=== PATIENT | male | born 1985 | race Caucasian/White ===

== ENCOUNTER 2018-08-25 05:22 | Emergency (ER) | payer BC, OTHER ==
[~2018-08-25] VITALS: Ht 182.9 cm; Wt 90.7 kg
[2018-08-25] MEDS ORDERED: LIDOCAINE 2% VISCOUS 15 ML UDC ONE (05:27)
[2018-08-25] MEDS ORDERED: ANTACID SUSP 30 ML UDC (MYLANTA) ONE (05:27)
[2018-08-25] MEDS ORDERED: LIDOCAINE 2% VISCOUS 15 ML UDC PO ONE (05:30)
[2018-08-25] MEDS ORDERED: ONDANSETRON 4 MG/2 ML (SDV) Z0FRAN IVP ONE (05:30)
[2018-08-25] MEDS ORDERED: ANTACID SUSP 30 ML UDC (MYLANTA) PO ONE (05:30)
[2018-08-25] MEDS ORDERED: FAMOTIDINE 20MG/2ML IV (PEPCID) IVP ONE (05:30)
[2018-08-25] MEDS ORDERED: morphine INJ 10 MG/ML 1ML (SYR OR VIAL) IVP STA (05:55)
[2018-08-25 06:16] LABS: HEMOGLOBIN 14.8 G/DL (13.3-17.7); RED CELL DISTRIBUTION WIDTH 12.7 % (10.0-14.5); WHITE BLOOD COUNT 10.4 10^3/uL (4.3-11.0)
[2018-08-25 06:17] LABS: MEAN PLATELET VOLUME 8.3 FL (7.4-10.4)
[2018-08-25 06:33] LABS: ALANINE AMINOTRANSFERASE 46 U/L (0-55); ALKALINE PHOSPHATASE 58 U/L (40-136); BILIRUBIN,TOTAL 0.4 MG/DL (0.1-1.0); BUN/CREATININE RATIO 8; CALCIUM 8.8 MG/DL (8.5-10.1); CARBON DIOXIDE 25 MMOL/L (21-32); CHLORIDE 101 MMOL/L (98-107); CREATININE SERUM 1.04 MG/DL (0.60-1.30); GFR ESTIMATED > 60; GLUCOSE 99 MG/DL (70-105); POTASSIUM 3.6 MMOL/L (3.6-5.0); SODIUM 143 MMOL/L (135-145)
[2018-08-25 06:34] LABS: ALBUMIN 4.8 GM/DL (3.2-4.5); LIPASE 29 U/L (8-78); TOTAL PROTEIN 7.7 GM/DL (6.4-8.2)
--- NOTE | 2018-08-25 06:54 | Diagnostic Imaging Report ---
INDICATION: Chest pain COMPARISON: None. FINDINGS: Single view chest demonstrates clear lungs bilaterally. The heart is normal. There is no pneumothorax. The osseous structures normal. IMPRESSION: Negative chest. Dictated by: Dictated on workstation # [id number]
--- NOTE | 2018-08-25 07:05 | NUR ---
Report from Joselin CAMILO. Pt pending results of tests and being notified of tests resulted to review.
[2018-08-25] MEDS ORDERED: NS IV 1000 ML 1,000 ML IV SCH (07:15)
--- NOTE | 2018-08-25 07:49 | ED Chest Pain ---
General Chief Complaint: Cardiac/General Problems Stated Complaint: CHEST PAIN Nursing Triage Note: complaint of tightness, sharp chest pain woke pt from sleep. states had greasy food and ETOH last night. Nursing Sepsis Screen: No Definite Risk Source: patient Exam Limitations: no limitations History of Present Illness Date Seen by Provider: Aug 25, 2018 Time Seen by Provider: 05:30 Initial Comments 33-year-old male who woke with severe crushing substernal chest pain described as squeezing, rated 10 out of 10 this morning. Patient has history of reflux disease is noncompliant with medication. States he ate spicy food and drink alcohol last night prior to bed. No shortness of breath fever chills nausea vomiting sweats. No hematemesis coffee-ground emesis, melena. No flank back, shoulder pain, neck pain. No history of coronary disease. No history of pancreatitis, biliary disease, DVT or PE. No other acute symptoms or complaints. Patient does report heavy alcohol consumption past 2 days. Timing/Duration: 1-3 hours Severity/Quality: severe Location: substernal, epigastric Radiation: no radiation Activities at Onset: sleep Prior CP/Workup: no prior chest pain ASA po CARTON FOLDER: No NTG SL CARTON FOLDER: No Associated Symptoms: abdominal pain, heartburn Allergies and Home Medications Allergies Coded Allergies: No Known Drug Allergies (Unverified , 08/25/18) Patient Home Medication List Home Medication List Reviewed: Yes Review of Systems Review of Systems Constitutional: no symptoms reported EENTM: No Symptoms Reported Respiratory: No Symptoms Reported Cardiovascular: See HPI, Chest Pain, Lightheadedness Gastrointestinal: No Symptoms Reported, Abdominal Pain Genitourinary: No Symptoms Reported Musculoskeletal: no symptoms reported Skin: no symptoms reported Psychiatric/Neurological: No Symptoms Reported Endocrine: No Symptoms Reported Hematologic/Lymphatic: No Symptoms Reported All Other Systems Reviewed Negative Unless Noted: Yes Past Epnaerr-Eyosmz-Unjycf Hx Patient Social History Alcohol Use: Occasionally Uses Smoking Status: Never a Smoker Recent Foreign Travel: No Contact w/Someone Who Travel: No Recent Infectious Disease Expo: No Physical Abuse: No Sexual Abuse: No Mistreated: No Seasonal Allergies Seasonal Allergies: Yes Physical Exam Vital Signs Vital Signs - First Documented 08/25/18 05:45 Temp 98.9 Pulse 94 Resp 18 B/P (MAP) 136/83 (100) Pulse Ox 100 O2 Delivery Room Air Capillary Refill : Less Than 3 Seconds Height, Weight, BMI Height: 6'" Weight: 200lbs. oz. [id number]; BMI Method:Estimated General Appearance: WD/WN, Anxious, Moderate Distress HEENT: PERRL/EOMI, Normal ENT Inspection, Pharynx Normal, Moist Mucous Membranes; No Pale Conjunctivae (L), No Pale Conjunctivae (R) Neck: Full Range of Motion, Normal Inspection, Non Tender Respiratory: Chest Non Tender, Lungs Clear, Normal Breath Sounds, No Accessory Muscle Use, No Respiratory Distress Cardiovascular: Regular Rate, Rhythm, No Edema, Normal Peripheral Pulses Gastrointestinal: Normal Bowel Sounds; No Abnormal Bowel Sounds, No Distended, No Hepatomegaly Neurologic/Psychiatric: Alert, Oriented x3 Skin: Normal Color, Warm/Dry Focused Exam Sepsis Stage: Ruled Out Progress/Results/Core Measures Results/Orders Lab Results Laboratory Tests Test 08/25/18 05:45 Range/Units White Blood Count 10.4 4.3-11.0 10^3/uL Red Blood Count 4.40 4.35-5.85 10^6/uL Hemoglobin 14.8 13.3-17.7 G/DL Hematocrit 42 40-54 % Mean Corpuscular Volume 95 80-99 FL Mean Corpuscular Hemoglobin 34 25-34 PG Mean Corpuscular Hemoglobin Concent 36 32-36 G/DL Red Cell Distribution Width 12.7 10.0-14.5 % Platelet Count 274 130-400 10^3/uL Mean Platelet Volume 8.3 7.4-10.4 FL Sodium Level 143 135-145 MMOL/L Potassium Level 3.6 3.6-5.0 MMOL/L Chloride Level 101 98-107 MMOL/L Carbon Dioxide Level 25 21-32 MMOL/L Anion Gap 17 H 5-14 MMOL/L Blood Urea Nitrogen 8 7-18 MG/DL Creatinine 1.04 0.60-1.30 MG/DL Estimat Glomerular Filtration Rate > 60 BUN/Creatinine Ratio 8 Glucose Level 99 70-105 MG/DL Calcium Level 8.8 8.5-10.1 MG/DL Corrected Calcium 8.5-10.1 MG/DL Total Bilirubin 0.4 0.1-1.0 MG/DL Aspartate Amino Transf (AST/SGOT) 63 H 5-34 U/L Alanine Aminotransferase (ALT/SGPT) 46 0-55 U/L Alkaline Phosphatase 58 40-136 U/L Troponin T 6 <=15 NG/L Total Protein 7.7 6.4-8.2 GM/DL Albumin 4.8 H 3.2-4.5 GM/DL Lipase 29 8-78 U/L My Orders Orders - WHIT HANSON DO Antacid Suspension (Mylanta Suspension (08/25/18 05:30) Lidocaine 2% Viscous 15 Ml (Xylocaine Vi (08/25/18 05:30) Famotidine Injection (Pepcid Injection) (08/25/18 05:30) Ondansetron Injection (Zofran Injectio (08/25/18 05:30) Lidocaine 2% Viscous 15 Ml (Xylocaine Vi (08/25/18 05:27) Antacid Suspension (Mylanta Suspension (08/25/18 05:27) Cbc No Diff (08/25/18 05:33) Comprehensive Metabolic Panel (08/25/18 05:33) Lipase (08/25/18 05:33) Chest 1 View Ap/Pa Only (08/25/18 05:33) Morphine Injection (Morphine Injection (08/25/18 05:55) Ns Iv 1000 Ml (Sodium Chloride 0.9%) (08/25/18 07:15) Ct Abdomen/Pelvis W (08/25/18 07:14) Iopamidol 61% Injection (Isovue 300 61% (08/25/18 08:30) Sodium Chloride Flush (Catheter Flush Sy (08/25/18 08:30) Ns (Ivpb) (Sodium Chloride 0.9% Ivpb Bag (08/25/18 08:30) Medications Given in ED Current Medications Medications Dose Ordered Sig/Pelon Route Start Time Stop Time Status Last Admin Dose Admin Al Hydrox/Mg Hydrox/Simethicone 30 ml STK-MED ONCE .ROUTE 08/25/18 05:27 08/25/18 05:33 DC 08/25/18 05:36 30 ML Famotidine 20 mg ONCE ONCE IVP 08/25/18 05:30 08/25/18 05:34 DC 08/25/18 06:08 20 MG Iopamidol 100 ml ONCE ONCE IV 08/25/18 08:30 08/25/18 08:35 DC 08/25/18 08:51 100 ML Lidocaine HCl 15 ml STK-MED ONCE .ROUTE 08/25/18 05:27 08/25/18 05:33 DC 08/25/18 05:37 15 ML Ondansetron HCl 4 mg ONCE ONCE IVP 08/25/18 05:30 08/25/18 05:34 DC 08/25/18 06:08 4 MG Sodium Chloride 10 ml NEEDED PRN IV 08/25/18 08:30 08/25/18 08:46 10 ML Sodium Chloride 50 ml ONCE ONCE IV 08/25/18 08:30 08/25/18 08:35 DC 08/25/18 08:46 50 ML Vital Signs/I&O 08/25/18 08/25/18 05:45 05:45 Temp 98.9 Pulse 94 Resp 18 B/P (MAP) 136/83 (100) Pulse Ox 100 O2 Delivery Room Air Room Air Blood Pressure Mean: 100 Progress Progress Note : Time: 07:50 Progress Note Patient given GI cocktail, Zofran and Pepcid with partially for symptoms. Significantly for poorly with morphine. Lab work nondiagnostic. CT abdomen and pelvis will be ordered and reviewed. If normal, anticipate discharge home with dietary restrictions and supportive care with PCP follow-up. Initial ECG Impression Date: Aug 25, 2018 Initial ECG Impression Time: 05:21 Initial ECG Rhythm: Normal Sinus Initial ECG Impression: Normal Comment Incomplete right bundle Branch block Diagnostic Imaging Diagonstic Imaging: Xray Reviewed: Reviewed [place] Study Departure Impression Primary Impression: Chest pain Additional Impression: Gastritis Disposition: 01 HOME, SELF-CARE Condition: Improved Departure-Patient Inst. Decision time for Depature: 09:39 Referrals: NO,LOCAL PHYSICIAN (PCP) Primary Care Physician Patient Instructions: Acid Reflux (Gastroesophageal Reflux Disease), Adult (DC) , Chest Pain (DC) Add. Discharge Instructions: Please drink clear liquids only for the next 6-12 hours then gradually increase to soft bland diet as tolerated. Do not drink alcohol, chest caffeine, take NSAIDs and avoid spicy foods until symptoms have fully resolved. Take newly prescribed medication as directed and follow up with your PCP in one week for reevaluation. In the meantime if you develop new or worsening symptoms, return to the ED. All discharge instructions reviewed with patient and/or family. Voiced understanding. Scripts Sucralfate (Carafate) 1 Gm/10 Ml Oral.susp 1 GM PO QID for 30 Days, ML Prov: WHIT HANSON DO 08/25/18 Famotidine (Pepcid) 20 Mg Tablet 20 MG PO BID, #60 TAB Prov: WHIT HANSON DO 08/25/18 Omeprazole (Omeprazole) 40 Mg Capsule.dr 40 MG PO DAILY, #30 CAP Prov: WHIT HANSON DO 08/25/18 WHIT HANSON DO Aug 25, 2018 07:49
[2018-08-25] MEDS ORDERED: IOPAMIDOL 61% 100 ML (ISOVUE 300) VIAL IV ONE (08:30)
[2018-08-25] MEDS ORDERED: CATHETER FLUSH 10 ML SYR IV PRN (08:30)
[2018-08-25] MEDS ORDERED: NS 50 ML (IVPB) BAG IV ONE (08:30)
--- NOTE | 2018-08-25 08:31 | NUR ---
Pt to CT per W/C.
--- NOTE | 2018-08-25 08:48 | NUR ---
Pt returned to room per W/C from C.T. Pending results of C.T. Numerous times staff home therapy rn being asked questions by . Have tried to reassure them monitors do beep frequently and will try to address it prompt but are known to alarm with movements and when patient or staff remove the monitoring.
--- NOTE | 2018-08-25 09:08 | Diagnostic Imaging Report ---
PROCEDURE: CT abdomen and pelvis with contrast. TECHNIQUE: Multiple contiguous axial images were obtained through the abdomen and pelvis after administration of intravenous contrast. INDICATION: Severe chest pain. No priors. FINDINGS: The lung bases are clear. The liver, gallbladder, bile ducts, spleen, adrenals, pancreas all unremarkable. The unobstructed kidneys appear normal. The appendix visualized and normal. There is no diverticulitis. Urinary bladder wall is thickened; however, it is nondistended. This likely reflects its virtually empty state. No perivesical edema. No focal abdominopelvic inflammatory changes are identified. There is no ascites, abscess, hematoma or fluid collection. There is no pneumatosis or free gas. The osseous structures nonacute. The lung bases clear. IMPRESSION: No obstructive features, inflammatory process or acute-appearing abdominopelvic abnormalities. Dictated by: Dictated on workstation # [id number]
--- NOTE | 2018-08-25 09:39 | NUR ---
Glass of water granted per Dr order.
[2018-08-25] MEDS ORDERED: OMEP40CA36 PO (09:43)
[2018-08-25] MEDS ORDERED: FAMO-119 PO (09:43)
[2018-08-25] MEDS ORDERED: SUCR1ORA5 PO (09:43)
--- NOTE | 2018-08-25 09:55 | NUR ---
Have visited pt room twice trying to work on discharging but another patient safety requiring RN returns frequently to that room. Pt 's reports they are not upset as they have noted ER busy appearing, no staff at desk.
[2018-08-25 10:05] VITALS: BP 137/79
--- NOTE | 2018-08-25 10:05 | NUR ---
Pt departed ED at this time verbalizing understanding of home instructions reviewed. Pt's has been to desk numerous times for requests and questions. also verbalizing understanding of instructions reviewed, in addition to her questions answered. Pt is reporting reduced level of pain.
== END 2018-08-25 10:05 | disposition home or self-care (01) ==
LOC: ER FS 05:24
DX: K29.70 Gastritis, unspecified, without bleeding (principal); R07.81 Pleurodynia; K21.9 Gastro-esophageal reflux disease without esophagitis; Z91.14 Patient's other noncompliance with medication regimen
CPT/HCPCS: 36415; 71045; 74177; 80053; 83690; 84484; 85027; 96361; 96374; 96375

== ENCOUNTER 2018-12-17 20:10 | Emergency (ER) | payer BC ==
[~2018-12-17 20:10] MED LIST: FAMO-119 PO; OMEP40CA36 PO; SUCR1ORA5 PO
[2018-12-17] MEDS ORDERED: TETANUS,DIPTH,PERTUSS P/F (BOOSTRIX) 0.5 ML VIAL IM ONE (21:15)
[2018-12-17 21:20] VITALS: BP 118/72
--- NOTE | 2018-12-17 21:27 | ED Upper Extremity ---
General Chief Complaint: Laceration Stated Complaint: RT ARM LAC Source: patient History of Present Illness Date Seen by Provider: Dec 17, 2018 Time Seen by Provider: 19:00 Initial Comments Patient is a right-handed male who presents with a 3 cm full-thickness laceration to the extensor surface of the right forearm companied with multiple 1-2 cm adjacent superficial lacerations. Injury occurred approximately 2 hours prior to the arrival. Patient was installing barbedwire fence which snapped back hitting him in the forearm. No other injuries reported Last known tetanus greater than 7 years ago. No other acute symptoms or complaints. Onset: just prior to arrival, this evening Pain/Injury Location: right forearm Method of Injury: incised Allergies and Home Medications Allergies Coded Allergies: No Known Drug Allergies (Unverified , 08/25/18) Home Medications Famotidine 20 Mg Tablet, 20 MG PO BID Prescribed by: WHIT HANSON on 08/25/18 0943 Omeprazole 40 Mg Capsule.dr, 40 MG PO DAILY Prescribed by: WHIT HANSON on 08/25/18 0943 Sucralfate 1 Gm/10 Ml Oral.susp, 1 GM PO QID Prescribed by: WHIT HANSON on 08/25/18 0943 Patient Home Medication List Home Medication List Reviewed: Yes Review of Systems Constitutional: no symptoms reported EENTM: no symptoms reported Respiratory: no symptoms reported Cardiovascular: no symptoms reported Gastrointestinal: no symptoms reported Genitourinary: no symptoms reported Musculoskeletal: no symptoms reported Skin: see HPI Past Ukuhmhk-Cnpwld-Qijjkk Hx Past Med/Social Hx: Reviewed Nursing Past Med/Soc Hx Patient Social History Recent Foreign Travel: No Contact w/Someone Who Travel: No Seasonal Allergies Seasonal Allergies: Yes Physical Exam Vital Signs Capillary Refill : Height, Weight, BMI Height: 6'" Weight: 200lbs. oz. [id number]; BMI Method:Estimated General Appearance: WD/WN, no apparent distress HEENT: PERRL/EOMI, normal ENT inspection Neck: full range of motion Respiratory: lungs clear, normal breath sounds Elbow/Forearm: Right (distal extensor forearm laceration, 3 cm, full-thickness, no deep structures involved, wound is clean, no foreign bodies present, minimal bleeding. Multiple 1-2 cm superficial lacerations adjacent tissue) Procedures/Interventions Wound Location: Upper Extremities (extensor surface, right forearm) Wound's Depth, Shape: sub Q Wound Explored: no foreign body removed Irrigated w/ Saline (ccs): 100 Betadine Prep?: No Staple Repair: Stapler 35W Number of Sutures: 5 Sterile Dressing Applied?: Yes Progress Patient tolerated the procedure well. Typical wound care instructions provided. Progress/Results/Core Measures Results/Orders My Orders Orders - WHIT HANSON DO Dipht,Pertuss(Acell),Tet Adult (Boostrix (12/17/18 21:15) Medications Given in ED Current Medications Medications Dose Ordered Sig/Pelon Route Start Time Stop Time Status Last Admin Dose Admin Diphtheria/ Tetanus/Acell Pertussis 0.5 ml ONCE ONCE IM 12/17/18 21:15 12/17/18 21:16 DC 12/17/18 21:15 0.5 ML Departure Communication (Admissions) Wound cleansed and closed, tetanus updated. Typical wound care instructions provided. Return precautions reviewed. Impression Primary Impression: Laceration of right forearm Disposition: HOME, SELF-CARE Condition: Improved Departure-Patient Inst. Patient Instructions: Laceration Repair With [place] (DC) Add. Discharge Instructions: Please keep wound clean and dry and covered for the next 3-5 days. Avoid soaki ng wound and do not swell until larry are removed. Follow-up with local medical provider in 10-12 days for suture removal. Return to ED if any signs of infection. All discharge instructions reviewed with patient and/or family. Voiced understanding. WHIT HANSON DO Dec 17, 2018 21:27
== END 2018-12-17 21:20 | disposition home or self-care (01) ==
LOC: EDUNIT# 20:10 → ER FS 20:11
DX: S51.811A Laceration without foreign body of right forearm, initial encounter (principal); W26.8XXA Contact with other sharp object(s), not elsewhere classified, initial encounter
CPT/HCPCS: 12032; 90471; 90715